=== PATIENT | female | born 1995 | race Caucasian/White ===

== ENCOUNTER 2016-04-19 08:21 | Emergency (ER) ==
--- NOTE | 2016-04-19 09:31 | PROVIDER DOCUMENTATION ---
HPI-Female /OB/Breast - General Source: reports: patient - History of Present Illness-Female /OB Does patient report she is ?: No (Pt states period two days ago ) Location of complaint: reports: LLQ Radiation: reports: back Quality of Pain: reports: aching Severity in ED: reports: mild Onset/Duration: reports: other (1 to 2 weeks) Timing: reports: still present Context/Activities at Onset: reports: light activity Vaginal Symptoms: reports: foul odor. denies: abnormal bleeding, discharge, itching, pain with intercourse, passing clots/tissue Vaginal Bleeding Amount: None Urinary Symptoms: reports: no symptoms Related Symptoms: reports: no symptoms Leakage of Fluid: none Sexual intercourse history: reports: Other (unsure) Contraception: reports: none Modifying Factors: improves with: nothing Associated Symptoms: reports: back/neck pain (L side back). denies: anxiety, chest pain, constipation, cough, diaphoresis, diarrhea, dizziness, fatigue, fever/chills, joint pain, loss of appetite, malaise, muscle aches, nausea, rash , seizure, sensory/motor loss, swelling/mass in abdomen, syncope, vomiting, weakness, trouble walking Similar Symptoms Previously?: Yes Recently seen or treated by another doctor?: No - LMP/ History LMP: 04/16/16 <Chelsea Macias - Last Filed: 04/19/16 10:41> <Edward Adorno - Last Filed: 04/19/16 10:48> - General Stated Complaint: UTI SX Time Seen by Provider: 04/19/16 09:21 Allergies/Adverse Reactions: Patient Allergies Allergy/AdvReac Type Severity Reaction Status Date / Time acetaminophen [From Esg[facility]] Allergy NAUSEA/VOMI Verified 06/20/15 23:25 TING butalbital [From Esg[facility]] Allergy NAUSEA/VOMI Verified 06/20/15 23:25 TING caffeine [From Esg[facility]] Allergy NAUSEA/VOMI Verified 06/20/15 23:25 TING Home Medications: Home Medication List Medication Instructions Recorded Confirmed Last Taken Type Hydrocodone/Acetaminophen [Marfa 1 each PO Q6-8H PRN PRN #12 tablet 04/19/16 Unknown Rx 5-325 Tablet] - History of Present Illness-Female /OB Nature of Presenting Problem: Pt is 20 y/o F presents to the ED with UTI like symptoms. Pt states foul smelling urine. Pt states odor has been present for one to two weeks. Pt states taking AZO with no relief. Pt states pain in LLQ and and L side back pain. Pt denies dysuria. Pt denies F (Chelsea Macias) Review of Systems - Adult - REVIEW OF SYSTEMS - ADULT Constitutional: denies: chills, fever Eyes: denies: blurred vision, double vision Ears, Nose, Mouth & Throat: denies: ear pain, nose pain, throat pain Cardiovascular: denies: chest pain, heart murmur, irregular heart rate Respiratory: denies: cough, shortness of breath, wheezing Gastrointestinal: reports: abdominal pain (LLQ). denies: diarrhea, nausea, vomiting Genitourinary: reports: other (foul odor). denies: dysuria, hematuria Musculoskeletal: reports: back pain (L side back pain). denies: bone pain, joint pain, neck pain Integumentary: denies: hives, itching Neurological: denies: dizziness/vertigo, headache/migraines Psychiatric: reports: no symptoms reported Endocrine: reports: no symptoms reported Hematologic/Lymphatic: reports: no symptoms reported Allergic/Immunologic: reports: no symptoms reported All Other Systems: Reviewed and Negative <Chelsea Macias - Last Filed: 04/19/16 10:41> Past History - Adult - PAST MEDICAL HISTORY-ADULT Review of Records: reports: Nursing Assessment Review, Medications Reviewed, Social history reviewed & non-contributory. 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 on dangers of tobacco.: Discussed manners to quit use, and f/u contacts for add'l counseling. Substance Use: denies Living Situation: family <Niels Maciasi - Last Filed: 04/19/16 10:41> Physical Exam-General - PHYSICAL EXAM-ADULT Initial Vital Signs Reviewed: Yes - CONSTITUTIONAL General Appearance: appears well, alert, no apparent distress - EYES Eyes: PERRL/EOMI, pink conjunctivae, fundi clear, no AV nicking - HEAD, EARS, NOSE, MOUTH & THROAT HENMT: normocephalic/atraumatic, moist mucous membranes, normal ENT inspection, TMs normal, pharynx normal - NECK Neck: non-tender, full range of motion, supple, normal inspection - RESPIRATORY Respiratory: chest non-tender, lungs clear, normal breath sounds, no pleuratic chest pain, no respiratory distress, no accessory muscle use - CARDIOVASCULAR Cardiovascular: normal peripheral pulses, regular rate, rhythm, no edema, no gallop, no JVD, no murmur - GASTROINTESTINAL (ABDOMEN) Abdominal Exam: normal bowel sounds, soft, no organomegaly, no pulsatile mass, tenderness (LLQ) - LYMPHATIC Lymphatic: no adenopathy - MUSCULOSKELETAL Back Exam: normal inspection, no vertebral tenderness, CVA tenderness (L side) Extremity: normal range of motion, non-tender, normal gait, normal inspection - SKIN Integumentary: normal color, normal turgor, warm/dry - NEUROLOGIC Neurologic: grossly normal - PSYCHIATRIC Psych/Mental Status: normal mood/affect, oriented x 3 <Linda Maciasomi - Last Filed: 04/19/16 10:41> Progress - CT/MRI 1 CT Study: Renal Stone Impression: Normal CT Results: no stones or obstruction <GilbertoChelsea - Last Filed: 04/19/16 10:41> <Edward Adorno - Last Filed: 04/19/16 10:48> - PLAN OF CARE/RESULTS Progress/Plan/Lab Results: Orders Category Date Time Status ED: Urine Bedside ORDERED Care 04/19/16 09:[address] [URINALYSIS] Stat Lab 04/19/16 09:22 Ordered Laboratory Tests 04/19/16 09:50 Urine Source CLEAN CATCH Urine Color YELLOW Urine Clarity CLEAR Urine pH 6.5 Ur Specific Branch 1.015 Urine Protein NEGATIVE Urine Ketones NEGATIVE Urine Blood TRACE Urine Nitrite NEGATIVE Urine Bilirubin NEGATIVE Urine Urobilinogen NORMAL Urine Microscopic RBC 10-20 A Urine WBC NEGATIVE Urine Microscopic WBC <10 Ur Epithelial Cells >10 A Urine Bacteria 1+ Urine Glucose NEGATIVE Vital Signs - 24 hr 04/19/16 09:59 Temperature 98.6 F Pulse Rate 69 Respiratory 16 Rate Blood Pressure 103/67 O2 Sat by Pulse 98 Oximetry Laboratory Tests 04/19/16 04/19/16 09:50 09:50 Urine Source CLEAN CATCH Urine Color YELLOW Urine Clarity CLEAR Urine pH 6.5 Ur Specific Branch 1.015 Urine Protein NEGATIVE Urine Ketones NEGATIVE Urine Blood TRACE Urine Nitrite NEGATIVE Urine Bilirubin NEGATIVE Urine Urobilinogen NORMAL Urine Microscopic RBC 10-20 A Urine WBC NEGATIVE Urine Microscopic WBC <10 Ur Epithelial Cells >10 A Urine Bacteria 1+ Urine Glucose NEGATIVE Urine Test NEGATIVE (Chelsea Macias) Departure <Chelsea aMcias - Last Filed: 04/19/16 10:41> - Departure Time of Disposition Order: 10:46 Certified Medical Emergency: Emergent <Edward Adorno - Last Filed: 04/19/16 10:48> - Departure DIAGNOSIS: Left flank pain Disposition: HOME 01 Condition: Good Additional Instructions: ED Follow Up Instructions: You have been treated by a care provider in the Emergency Department. These instructions are being provided to you so you can have an understanding of how to care for yourself upon discharge. Upon discharge from the Emergency Department, you are responsible for making arrangements for follow-up care by a physician of your choice. Take all prescribed medications as directed. Return to the Emergency Department immediately for any new or worsening symptoms. You may call the Physician Referral phone number at [phone] to obtain a list of Physicians who are taking new patients. Prescriptions: Hydrocodone/Acetaminophen [Marfa 5-325 Tablet] 1 each PO Q6-8H PRN PRN #12 tablet PRN Reason: Pain Referrals: Lia Pandya MD [Primary Care Provider] - Instructions: Flank Pain, [id number] Attestation - Scribe Verification/Attestation Scribe:: Chelsea Macias Acting as Scribe for:: Edward Adorno Scribe documention review:: This chart was documented by a scribe and accurately reflects the service the provider performed and the decisions made by the provider. <Chelsea Macias - Last Filed: 04/19/16 10:41> Physician Attestation - Physician Attestation I, the provider, attest to the following statement:: Edward Adorno Physician documentation Attestation:: This documentation recorded by the scribe accurately reflects the service I personally performed and the decisions made by me. <Edward Adorno - Last Filed: 04/19/16 10:48>
[2016-04-19 09:54] LABS: URINE SOURCE CLEAN CATCH
[2016-04-19 09:58] LABS: BILIRUBIN URINE NEGATIVE (NEGATIVE); BLOOD URINE TRACE (NEGATIVE); CLARITY CLEAR (CLEAR); COLOR YELLOW; GLUCOSE URINE NEGATIVE (NEGATIVE); LEUKOCYTES URINE NEGATIVE (NEGATIVE); NITRITE URINE NEGATIVE (NEGATIVE); PH URINE 6.5; PROTEIN URINE NEGATIVE (NEGATIVE); SP GRAVITY URINE 1.015; URINE MICROSCOPIC NEEDED? YES; UROBILINOGEN URINE NORMAL
[2016-04-19 10:03] LABS: URINE EPITHELIAL CELLS >10 /HPF (<10); URINE WBC <10 /HPF (<10)
--- NOTE | 2016-04-19 10:57 | Diag Imaging Result Document ---
PROCEDURE NAME: RENAL STONE SEARCH - 04/19/2016 CT UROGRAM WITHOUT CONTRAST: Current study is compared with that of 04/17/2014 FINDINGS: There are no identifiable kidney stones. There are no ureteral stones and there is no evidence of hydronephrosis. There is no evidence of bowel obstruction. There are some diverticula in the sigmoid colon without evidence of diverticulitis. The appendix is normal in appearance. The gallbladder is not distended and there are no definite gallstones. IMPRESSION: No evidence of stones or obstruction.
[2016-04-19 11:01] VITALS: BP 112/69
== END 2016-04-19 11:01 | disposition home or self-care (01) ==
LOC: P.ED 08:21
DX: R10.9 Unspecified abdominal pain (principal); R10.32 Left lower quadrant pain; R82.90 Unspecified abnormal findings in urine; M54.9 Dorsalgia, unspecified; Q85.00 Neurofibromatosis, unspecified; F17.210 Nicotine dependence, cigarettes, uncomplicated; Z71.6 Tobacco abuse counseling
CPT/HCPCS: 74176; 81001; 81025